=== PATIENT | female | born 1965 | race Caucasian/White ===

== ENCOUNTER 2017-08-10 16:26 | Outpatient (CLI) | payer OTHER ==
--- NOTE | 2017-08-11 16:10 | MRI Report ---
EXAM: MRI LUMBAR SPINE WITHOUT CONTRAST EXAM DATE: 08/10/2017 05:10 PM. CLINICAL HISTORY: Low back pain. Chronic back pain. COMPARISON: None. TECHNIQUE: Multiplanar, multisequence T1-weighted and fluid-sensitive sequences of the lumbar spine f rom T12 to S1 without contrast. Other: None. FINDINGS: There is normal alignment of the lumbar spine. There is a mild decrease in the height of the disk with desiccation at L4-L5 and L5-S1. There are Schmorl's nodes within the endplates from T10-T11 through L3-L4. The conus terminates at the inferior endplate level of T12 and is normal. The abdominal aorta is of normal caliber. There is a mild degree of paraspinal musculature atrophy. The kidneys are without evidence of hydrone phrosis. There is fluid intensity within the superficial space of the lower back. L1-L2: There is mild bilateral facet arthropathy. There is a minimal disk osteophyte complex producin g a minimal central canal stenosis. There is no significant foraminal stenosis. L2-L3: There is no significant disk bulge, central or foraminal stenosis. The facets are normal. L3-L4: There is mild to moderate left facet arthropathy. The remainder of the level is normal. L4-L5: There is a small disk osteophyte complex with a right paracentral extrusion of the disk with a nnular tear extending into the right lateral recess producing entrapment of the traversing right L5 n erve root. Recommend correlation for right L5 radiculopathy. There is mild to moderate right and mild left foraminal stenosis. L5-S1: There is a small disk osteophyte complex producing a mild central canal stenosis. There is mod erate left and mild to moderate right foraminal stenosis. IMPRESSION: 1. There is a small disk osteophyte complex at L4-L5 with a right paracentral extrusion of the disk w ith annular tear extending into the right lateral recess producing entrapment of the traversing right L5 nerve root. Recommend correlation for right L5 radiculopathy. 2. There is a small disk osteophyte complex producing a mild central canal stenosis at L5-S1. 3. There is a minimal disk osteophyte complex producing a minimal central canal stenosis at L1-L2. Comment: The following findings are so common in adults without low back pain that while we report th eir presence, they must be interpreted with caution and in the context of the clinical situation. (Re chace Seay et al, Spine 2001) Prevalence of findings in patients without low back pain: Disk degeneration (any evidence): 92% Disk desiccation/T2 signal loss: 83% Disk height loss: 56% Disk bulge: 64% Disk protrusion: 32% Annular tear/high intensity zone: 38% [facility] Referring Provider Line: [phone] SITE ID: [id number]
== END 2017-08-10 16:27 | disposition home or self-care (01) ==
LOC: DI 16:26
PROVIDERS: ATTEND Family Medicine
DX: M51.26 Other intervertebral disc displacement, lumbar region (principal)
CPT/HCPCS: 72148

== ENCOUNTER 2020-04-27 17:18 | Outpatient (CLI) | payer OTHER | END 2020-04-27 17:19 | disposition home or self-care (01) | LOC: COV 17:18 | PROVIDERS: ATTEND Surgery | DX: Z01.812 Encounter for preprocedural laboratory examination (principal); Z87.19 Personal history of other diseases of the digestive system; Z12.11 Encounter for screening for malignant neoplasm of colon; Z20.822 Contact with and (suspected) exposure to COVID-19 ==

== ENCOUNTER 2020-05-01 11:25 | Day surgery (SDC) | payer OTHER ==
[2020-05-01] MEDS ORDERED: LACTATED RINGERS 1,000 ML IV ONE ×2 (11:42→14:02)
[2020-05-01 11:54] LABS: HCG UR QUAL NEGATIVE
[2020-05-01] MEDS ORDERED: LIDO GARGLE 30 ML BOTTLE ONE (12:44)
[2020-05-01] MEDS ORDERED: BENZOCAINE/TETRACAINE/BUTAMBEN 20 GM ONE (12:45)
[2020-05-01] MEDS ORDERED: MIDAZOLAM 2 MG/2 ML VIAL ONE ×5 (12:52→13:38)
[2020-05-01] MEDS ORDERED: fentaNYL 250 MCG/5 ML VIAL ONE (12:53)
[2020-05-01 14:16] VITALS: BP 89/66
== END 2020-05-01 11:26 | disposition home or self-care (01) ==
LOC: SDS 11:25
PROVIDERS: ATTEND Surgery
PROC: 0DB78ZX Excision of Stomach, Pylorus, Via Natural or Artificial Opening Endoscopic, Diagnostic (ICD-10-PCS; 2020-05-01)
PROC: 0DJD8ZZ Inspection of Lower Intestinal Tract, Via Natural or Artificial Opening Endoscopic (ICD-10-PCS; principal; 2020-05-01 13:00)
PROC: 0DB38ZX Excision of Lower Esophagus, Via Natural or Artificial Opening Endoscopic, Diagnostic (ICD-10-PCS; 2020-05-01 13:00)
DX: Z12.11 Encounter for screening for malignant neoplasm of colon (principal); K57.30 Diverticulosis of large intestine without perforation or abscess without bleeding; K21.9 Gastro-esophageal reflux disease without esophagitis; Z87.19 Personal history of other diseases of the digestive system
CPT/HCPCS: 43239; 45378; 81025; A9270; J3010; J7120

== ENCOUNTER 2021-03-11 13:40 | Outpatient (CLI) | payer OTHER ==
--- NOTE | 2021-03-11 15:51 | MRI Report ---
PROCEDURE: Hand RT W/O INDICATIONS: RIGHT WRIST PAIN TECHNIQUE: Noncontrast coronal T1 spin echo and T2 fast spin echo with fat saturation, axial proton density fast spin echo and T2 fast spin echo with fat saturation, sagittal T1 spin echo and STIR through the hand and fingers. COMPARISON: None. FINDINGS: Image quality: Excellent. Bones: The bones are normally aligned, without marrow contusions or fractures. No intra-osseous les ions. Soft tissues: Visualized muscles demonstrate normal bulk and internal signal. No intramuscular mass es identified. No ganglion cysts. IMPRESSION: No significant osseous antibody is seen in the hand. No acute ligament or tendon injury. Reviewed by: Eamon Castillo MD on 03/11/2021 3:49 PM PST Approved by: Eamon Castillo MD on 03/11/2021 3:49 PM PST Station ID: [id number]
--- NOTE | 2021-03-11 15:51 | MRI Report ---
PROCEDURE: Wrist RT W/O INDICATIONS: RIGHT WRIST PAIN TECHNIQUE: Noncontrast coronal proton density fast spin echo and T2 fast spin echo with fat saturation; coronal 3-D gradient echo, axial T1 spin echo and T2 fast spin echo with fat saturation, sagittal T1 spin ech o through the wrist. COMPARISON: None. FINDINGS: Image quality: Excellent. Bones and cartilage: The carpal bones are normally aligned. No bone marrow contusions or fractures. Chronic cystic changes are seen within the lunate, which are likely degenerative. No evidence for av ascular necrosis. Carpal ligaments: The scapholunate and lunotriquetral ligaments appear intact. In the absence of in tra-articular contrast, the extrinsic carpal ligaments are not well identified. On sagittal images, the pisohamate ligament appears intact. Triangular fibrocartilage complex: There is focal perforation of the trachea fibrocartilage disc viri r its radial attachment, which may be degenerative. The radial and ulnar attachments appear to be int act. There is a small distal radioulnar joint effusion. Tendons and soft tissues: The carpal tunnel structures appear normal, including the median nerve. T he ulnar nerve appears normal within Guyon's canal. There is tendinosis and likely focal partial int rasubstance tearing at the extensor carpi ulnaris tendon at the level of the ulnar groove adjacent to the skin marker with mild overlying soft tissue edema. The remaining extensor tendon compartments de monstrate normal morphology, without pathologic tendon sheath fluid. No soft tissue ganglion cysts. IMPRESSION: 1.Tendinosis and suspected partial intrasubstance tearing of the extensor carpi ulnaris tendon at the level of the ulnar groove with mild overlying soft tissue edema. 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 Reviewed by: Eamon Castillo MD on 03/11/2021 3:49 PM PST Approved by: Eamon Castillo MD on 03/11/2021 3:49 PM PST Station ID: [id number]
== END 2021-03-11 13:41 | disposition home or self-care (01) ==
LOC: DI 13:40
PROVIDERS: ATTEND Family Medicine
DX: M25.531 Pain in right wrist (principal); M67.833 Other specified disorders of tendon, right wrist; R93.6 Abnormal findings on diagnostic imaging of limbs

== ENCOUNTER 2022-07-01 09:34 | Outpatient (CLI) | payer OTHER ==
--- NOTE | 2022-07-01 12:07 | MRI Report ---
PROCEDURE: CERVICAL SPINE WO INDICATIONS: CERVICAL RADICULOPATHY TECHNIQUE: Noncontrast sagittal T1 spin echo and T2 fast spin echo, sagittal STIR, foraminal oblique sagittal T2 fast spin echo, and axial gradient echo or T2 fast spin echo through the cervical spine. COMPARISON: None. FINDINGS: Image quality: Excellent. Alignment and Curvature: There is normal bony alignment. Bone Marrow: Marrow demonstrates normal overall signal. Spinal Cord: Visualized spinal cord has normal size and signal. No cerebellar tonsillar herniation. Paraspinous Soft Tissues: No paravertebral masses. Prevertebral soft tissues are normal in thicknes s. C2-C3: Left facet hypertrophy. No canal stenosis or significant foraminal stenosis. C3-C4: Mild broad based central posterior disc protrusion indents the cord. AP diameter of the elsa l is 8 mm. The foramina are patent. C4-C5: Disc bulge, eccentric to the right, indenting on the cord. Central canal measures 8.7 mm. No foraminal stenosis. Left facet hypertrophy. C5-C6: Mild right paracentral disc protrusion flattens the left ventral cord. There is moderate narr owing of the left side of the canal. No significant foraminal narrowing. C6-C7: There is a right paracentral disc protrusion which markedly narrows the right side of the can al and flattens the right ventral cord. Additionally, there is a acute free extruded disc fragment wh ich has migrated superiorly in the right lateral recess, behind C6. It measures 9 mm in craniocaudal dimension. The right C7 nerve root is obliterated in the right lateral recess above the disc space an d at the disc space, and slightly in the foramen. C7-T1: No canal stenosis or foraminal stenosis. IMPRESSION: 1. The most significant findings are at C6-C7. A right paracentral disc protrusion markedly narrows t he right side of canal and flattens the right ventral cord. An acute large free extruded disc fragmen t in the right lateral recess, migrating superiorly, obliterates the right C7 nerve root in the right lateral recess 2. There is multilevel canal stenosis, moderate at C3-C4 and C4-C5, and moderate on the left side of the canal at C5-C6. 3. Disc bulge or disc protrusion indents on the cord at multiple levels, C3-C4, C4-C5, C5-C6, and C6- C7. Reviewed by: Rashad Reis MD on 07/01/2022 12:05 PM PDT Approved by: Rashad Reis MD on 07/01/2022 12:05 PM PDT Station ID: [id number]
== END 2022-07-01 09:35 | disposition home or self-care (01) ==
LOC: DI 09:34
PROVIDERS: ATTEND Student in an Organized Health Care Education/Training Program
DX: M47.22 Other spondylosis with radiculopathy, cervical region (principal); M50.321 Other cervical disc degeneration at C4-C5 level; M48.02 Spinal stenosis, cervical region; M50.11 Cervical disc disorder with radiculopathy, high cervical region

== ENCOUNTER 2023-03-07 08:32 | Outpatient (CLI) | payer OTHER ==
--- NOTE | 2023-03-07 15:53 | MRI Report ---
PROCE PROCEDURE: ANKLE WO - LT INDICATIONS: PAIN IN LEFT ANKLE TECHNIQUE: Noncontrast Magnetic Resonance Imaging (MRI) of the ankle/hindfoot was performed utilizing the follow ing sequences: sagittal T1 spin echo, sagittal T2 fast spin echo with fat saturation, axial PD fast s pin echo, axial T2 fast spin echo with fat saturation, coronal T1 spin echo, and coronal T2 fast spin echo with fat saturation. COMPARISON: None. FINDINGS: Image quality: Excellent. Bones and joints: Mild osseous edema is seen within the anterior process of the calcaneus. A small ossification is seen in this location that may represent a subacute or chronic fracture versus congenital variation with superimposed degeneration. There is chronic nonedematous cortical irregularity at the distal tip of t he fibula. Chronic osseous protuberance is seen at the superolateral talar neck and may be related t o chronic degenerative changes versus remote prior trauma and may contribute to anterior osseous impi ngement. No hindfoot coalition. The ankle mortise is maintained. No osteochondral defect is seen at t he talar dome. There is mild nonspecific subcutaneous soft tissue edema surrounding the ankle. Medial structures: The deltoid ligament and the spring ligament complex are intact. There is mild distal posterior tibia lis tenosynovitis. The flexor digitorum longus and flexor hallucis longus tendons are intact. The pos terior tibial neurovascular bundle appears normal within the tarsal tunnel, without extrinsic mass ef fect. Lateral structures: The anterior and posterior distal tibiofibular ligaments are intact. Probable remote prior osseous av ulsion injury involving the fibular attachment of the anterior talofibular ligament and calcaneofibul ar ligament with healing changes and chronic partial ligament tearing. The posterior talofibular liga ment appears to be intact. The peroneus brevis and longus tendons demonstrate mild tendinosis and ten osynovitis. The sinus tarsi demonstrates normal fatty signal. Anterior structures: The tibialis anterior, extensor hallucis longus, and extensor digitorum longus tendons appear intact. Posterior and plantar structures: Mild Achilles tendinosis. There is thickening of the proximal plantar fascia without surrounding serge a, consistent with chronic fasciopathy. Fatty infiltration of the abductor digiti minimi muscle is co nsistent with chronic denervation changes/Islas neuropathy. IMPRESSION: 1.Small ossification at the anterior process of the calcaneus with surrounding osseous edema is suspi cious for a subacute or chronic nondisplaced fracture versus congenital variant with superimposed deg enerative edema. 2.Remote prior grade 2 sprains of the anterior talofibular ligament and calcaneofibular ligament. Oss eous irregularity at the adjacent distal fibular tip is likely the sequela of a remote prior healed o sseous avulsion injury. 3.Nonedematous osseous protuberance at the superolateral talar neck is likely related to remote prior injury versus chronic degenerative changes, and may contribute to anterior osseous impingement. 4.Mild to moderate peroneus brevis and longus tendinosis and tenosynovitis. 5.Mild distal posterior tibialis tenosynovitis. 6.Mild Achilles tendinosis. 7.Fatty infiltration of the abductor digiti minimi muscle is suspicious for chronic denervation christie eda/Islas neuropathy. Reviewed by: Eamon Castillo MD on 03/07/2023 3:52 PM PST Approved by: Eamon Castillo MD on 03/07/2023 3:52 PM PST Station ID: [id number]
== END 2023-03-07 08:33 | disposition home or self-care (01) ==
LOC: DI 08:32
PROVIDERS: ATTEND Nurse Practitioner Family
DX: R93.6 Abnormal findings on diagnostic imaging of limbs (principal); S93.492D Sprain of other ligament of left ankle, subsequent encounter; S93.412D Sprain of calcaneofibular ligament of left ankle, subsequent encounter; M65.9 Synovitis and tenosynovitis, unspecified; M67.873 Other specified disorders of tendon, right ankle and foot; M62.89 Other specified disorders of muscle